=== PATIENT | male | born 1955 | race Caucasian/White ===

== ENCOUNTER 2020-07-15 17:21 | Observation (INO) | payer MEDICARE, BC ==
[~2020-07-15] VITALS: Ht 185.4 cm; Wt 100.8 kg
[~2020-07-15 17:21] MED LIST: META800T PO; METF500T17 PO; MULT-717 PO; OSTEO BI-FLEX1 EAC1 PO; OXYC5CAP2 PO
[2020-07-15 17:54] VITALS: BP 145/79
[2020-07-15 18:00] VITALS: BP 145/79
[2020-07-15] MEDS ORDERED: SITA50TA PO (18:16)
[2020-07-15] MEDS ORDERED: GLIM1TAB7 PO (18:17)
[2020-07-15] MEDS ORDERED: PRED5DRO20 RIGHTEYE (18:19)
[2020-07-15] MEDS ORDERED: CARB15DR5 RIGHTEYE (18:21)
[2020-07-15 18:45] VITALS: BP 145/79
[2020-07-15] MEDS ORDERED: FENTANYL PF 100 MCG/2ML ONE (19:19)
[2020-07-15] MEDS ORDERED: HYDROmorphone 1 MG/ML, 1ML INJ ONE (19:46)
[2020-07-15] MEDS ORDERED: LABETALOL 5MG/ML, 20ML IV PRN (20:00)
[2020-07-15] MEDS ORDERED: LORazepam 2 MG/ML, 1ML IVPush PRN (20:00)
[2020-07-15] MEDS ORDERED: hydrALAzine 20 MG/ML, 1ML IV PRN (20:00)
[2020-07-15] MEDS ORDERED: OXYcodone 5 MG/5 ML ORAL.SOL UDC PO PRN (20:00)
[2020-07-15] MEDS ORDERED: FENTANYL PF 100 MCG/2ML IV PRN (20:00)
[2020-07-15] MEDS ORDERED: HYDROmorphone 1 MG/ML, 1ML INJ IVPush PRN (20:00)
[2020-07-15] MEDS ORDERED: PROMETHAZINE 25 MG SUPP PR PRN (20:00)
[2020-07-15] MEDS ORDERED: METHOCARBAMOL 1,000 MG in DEXTROSE 5% 100 ML IV PRN (20:00)
[2020-07-15] MEDS ORDERED: ACETAMINOPHEN 325 MG TABLET PO PRN (20:00)
[2020-07-15] MEDS ORDERED: PROMETHAZINE 25 MG/ML, 1ML IVPush PRN (20:00)
[2020-07-15] MEDS ORDERED: ONDANSETRON 2MG/ML, 2ML IVPush PRN ×2 (20:00→22:00)
[2020-07-15] MEDS ORDERED: CEFAZOLIN 1,000 MG ONE (20:10)
[2020-07-15] MEDS ORDERED: DEXAMETHASONE 4 MG/ML, 1ML ONE (20:10)
[2020-07-15] MEDS ORDERED: PROPOFOL 10 MG/ML, 20ML ONE (20:10)
[2020-07-15] MEDS ORDERED: ONDANSETRON 2MG/ML, 2ML ONE (20:10)
[2020-07-15] MEDS ORDERED: ACETAMINOPHEN 650 MG/20.3 ML UDC ONE (20:49)
[2020-07-15] MEDS ORDERED: OXYcodone 5 MG/5 ML ORAL.SOL UDC ONE (20:50)
[2020-07-15] MEDS ORDERED: DEXTROSE 50%, 50ML SYRINGE IVPush PRN (22:00)
[2020-07-15] MEDS: D5%-0.45% NACL 1,000 ML IV SCH (22:00)
[2020-07-15] MEDS ORDERED: MORPHINE SULFATE 4 MG/ML, 1ML IVPush PRN (22:00)
[2020-07-15] MEDS ORDERED: OXYcodone IR 5MG TABLET PO PRN (22:00)
[2020-07-15] MEDS ORDERED: DEXTROSE 4 GM TAB.CHEW PO PRN (22:00)
[2020-07-15] MEDS ORDERED: GLUCAGON 1 MG IM PRN (22:00)
[2020-07-15] MEDS: GLIMEPIRIDE 1 MG TABLET PO SCH (22:00)
[2020-07-16 00:25] VITALS: BP 118/72
[2020-07-16 04:10] VITALS: BP 119/76
[2020-07-16 08:00] VITALS: BP 117/80
[2020-07-16] MEDS: D5%-0.45% NACL 1,000 ML IV SCH (08:00)
[2020-07-16] MEDS ORDERED: SODIUM CHLORIDE FLUSH 10ML SYR IVF SCH (09:00)
[2020-07-16] MEDS: GLIMEPIRIDE 1 MG TABLET PO SCH (09:00)
[2020-07-16] MEDS ORDERED: predniSOLONE OPHTH SUSP 1%, 5ML RIGHTEYE SCH (09:00)
[2020-07-16] MEDS ORDERED: LINAGLIPTIN 5 MG TAB PO SCH (09:00)
[2020-07-16] MEDS ORDERED: metFORMIN 500 MG TABLET PO SCH (09:00)
[2020-07-16 11:10] VITALS: BP 129/73
== END 2020-07-16 12:02 | disposition home or self-care (01) ==
LOC: OR 17:21 → 4NE 17:33 → OR 23:09 → 4NE 23:09 → INTOOBSV 23:09 → DCLOUNGE 07-16 11:58
PROVIDERS: ADMIT Urology; ATTEND Urology
DX: N20.1 Calculus of ureter (principal); Z20.822 Contact with and (suspected) exposure to COVID-19; I10 Essential (primary) hypertension; Z86.73 Personal history of transient ischemic attack (TIA), and cerebral infarction without residual deficits; Z79.899 Other long term (current) drug therapy; Z87.442 Personal history of urinary calculi
CPT/HCPCS: 52353; 74018; 87635; C1726; C1758; C2617; G0378; J0690; J1100; J1170; J2405; J2704; J3010; 76000